=== PATIENT | male | born 1955 | race Caucasian/White ===

== ENCOUNTER → 2017-08-23 | Outpatient (CLI) | payer BC | LOC: BMCIMAGING 15:59 | PROVIDERS: ATTEND Allergy & Immunology Allergy | DX: R91.8 Other nonspecific abnormal finding of lung field (principal) ==

== ENCOUNTER 2017-08-24 09:37 | Inpatient (IN) | payer BC ==
[2017-08-24] MEDS ORDERED: IPRATROPIUM/ALBUTEROL 3 ML DEYVIAL IH ONE (09:59)
[2017-08-24] MEDS ORDERED: methylPREDNISolone SOD SUCC 125 MG/2 ML VIAL IVP ONE (09:59)
[2017-08-24] MEDS ORDERED: ALBUTEROL 3 ML DEYVIAL IH ONE ×2 (09:59→11:16)
[2017-08-24] MEDS ORDERED: NS 1,000 ML IV ONE (09:59)
[2017-08-24] MEDS ORDERED: MAGNESIUM SULF 2 GM/WATER 50 ML IV ONE (09:59)
[2017-08-24 10:19] LABS: ABSOLUTE NRBC COUNT 0.02 10^3/uL (0-0.01); ADD DIFF? YES; ADD MORPH? NO; ADD SCAN? NO; ATYPICAL LYMPHOCYTE FLAG 0 (0-99); FRAGMENT RBC FLAG 0 (0-99); HEMATOCRIT 48.2 % (40.0-51.0); HEMOGLOBIN 17.3 g/dL (13.7-17.5); LEFT SHIFT FLG 40 (0-99); LIPEMIA HEMOLYSIS FLAG 90 (0-99); MEAN CELL HEMOGLOBIN 31.3 pg (27.9-34.1); MEAN CELL HEMOGLOBIN CONCENTR. 35.9 g/dL (32.4-36.7); MEAN CELL VOLUME 87.3 fL (81.5-99.8); MEAN PLATELET VOLUME 9.5 fL (8.7-11.7); NRBC-AUTO% 0.1 % (0.0-0.2); PLATELET CLUMPS FLAG 0 (0-99); PLATELET COUNT 279 10^3/uL (150-400); RED BLOOD CELL COUNT 5.52 10^6/uL (4.40-6.38); RED CELL DISTRIBUTION WIDTH 13.6 % (11.5-15.2)
--- NOTE | 2017-08-24 10:25 | EDPHY ---
H & P Time Seen by Provider: 08/24/17 09:54 HPI/ROS: HPI Shortness of breath, cough, asthma exacerbation. 62-year-old male by private vehicle. He comes from the office of his primary care physician Dr. Francia Martinez. He has a history of asthma. He reports that about 8 days ago he started feeling short of breath developed wheezing and a nonproductive cough. He was seen in the office of his primary care physician. He was started on azithromycin and prednisone. He finished the azithromycin yesterday. He was seen again in the office today. Worsening symptoms including worsening cough again described as dry with associated wheezing and shortness of breath. He denies fever. He reports that he has had pain associated with his cough in the right lower anterior chest area. He reports that his primary care physician also started him on Augmentin today. ROS: Constitutional: No fever, no chills. No weakness. Eyes: No discharge. No changes in vision. ENT: No sore throat. No nasal congestion or rhinorrhea. Respiratory: As above. Cardiac: No chest pain, no palpitations. Gastrointestinal: No abdominal pain, no vomiting, no diarrhea. Genitourinary: No hematuria. No dysuria or increased frequency with urination. Musculoskeletal: No back pain. No neck pain. No myalgias or arthralgias. Skin: No rashes. Neurological: No headache. No focal weakness or altered sensation. Past medical history: Asthma and pneumonia. Bronchoscopy about a year ago with no significant findings according to the patient. Primary care physician is Dr. Francia Martinez. Social history: Nonsmoker. Here by himself. Denies drinking. Physical Exam: General Appearance: Alert, anxious, intermittent dry cough. This patient is responding to questions appropriately and in full sentences. This patient appears well-hydrated and well-nourished. Eyes: Pupils equal and round no pallor or injection. No lid edema, erythema or injection. Respiratory: There are no retractions, tachypnea at 25-30. Intermittent dry hacking cough. He has diffuse wheezing primarily at the bases associated with coarse rhonchi at the bases bilaterally. Cardiovascular: Regular rate and rhythm. Tachycardia. No murmur appreciated. Neurological: Motor sensory function is grossly intact. Cranial nerves are normal. Gait is normal. Skin: Warm and dry, no rashes. Musculoskeletal: Neck is supple and nontender. Extremities are symmetrical. All joints range without pain or impingement. Psychiatric: No agitation. No depression. Database: EKG: EKG time is 10:32 a.m.; EKG shows a narrow complex normal sinus rhythm with a ventricular rate of 103. The NC, QRS, QT intervals are within normal limits. There are no ST-T wave changes indicative of ischemic or injury pattern. No evidence of right heart strain. Interpreted by me. Imaging: Chest x-ray PA and lateral; the cardiac mediastinal silhouette is unremarkable. Right middle lobe infiltrative process. Seen on prior x-rays as well. No other acute cardiopulmonary disease process noted. Interpreted by me. CT angiogram of the chest; significant for extensive mucus plugging indicative of bronchitis with airway disease. Questionable early pneumonia left lower lobe versus atelectasis. No pulmonary embolism. Results were discussed with staff radiologist. Procedures: Emergency department course: IV placed. He was placed on a panel monitor. He was immediately started on albuterol/Atrovent nebulizers 2 to be given [id number] this will be followed by continuous albuterol. He was given an additional 125 mg dose of IV Solu- Medrol and 2 g of IV magnesium. EKG and chest x-ray will be obtained shortly. 10:35 a.m., patient re-evaluated. He is currently on a nebulizer treatment. He states that it is making him feel better. He appears more relaxed at this time. His respiratory rate has slowed to 20. 11:15 a.m., patient re-evaluated. He has been off of his nebulizers for about 20 minutes. He is getting worse. More wheezing, worsening tachypnea. 15 mg continuous albuterol nebulizer was ordered. Plan for admission discussed. 11:30 a.m., spoke with hospitalist, Dr. Ramy Brower. Case discussed in detail. He accepts the patient for admission. Patient will be admitted to the step-down unit. Initially IV Levaquin was ordered given his recent history of azithromycin administration. 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 I discussed antibiotic choices with Dr. Ramy Brower. He will be started on Rocephin in the emergency department. CT scan of his chest has been ordered to further clarify the right middle lobe infiltrative process. 11:45 a.m., patient meets criteria for sepsis based on tachypnea, hypoxia, tachycardia, likely pneumonia. Protocol initiated. Venous lactate will be obtained. When the patient is not on a nebulizer his pulse oximetry's start to dip down and he develops more wheezing and respiratory distress. He was started on BiPAP in the emergency department and responded very well to this treatment. 12:00 p.m., patient is venous lactate 2.2. Possible severe sepsis. He was admitted to the hospitalist service in guarded condition. Differential Diagnosis: The differential diagnosis on this patient includes but is not limited to asthma exacerbation, reactive airway disease, pneumonitis, pneumonia. This represents a partial list of diagnoses considered. These considerations are based on history, physical exam, past history, reassessment and diagnostic testing. Smoking Status: Never smoked Constitutional: Initial Vital Signs Temperature (C) 36.9 C 08/24/17 09:45 Heart Rate 108 H 08/24/17 09:45 Respiratory Rate 16 08/24/17 09:45 Blood Pressure 144/95 H 08/24/17 09:45 O2 Sat (%) 89 L 08/24/17 09:45 O2 Delivery Mode Room Air O2 (L/minute) 5 Allergies/Adverse Reactions: levofloxacin Allergy (Verified 08/24/17 11:22) Home Medications: Medication Instructions Recorded Albuterol [Proventil Inhaler HFA 2 puffs IH Q4-6PRN PRN 08/24/17 (*)] Albuterol [Proventil Neb] 3 ml IH QID PRN 08/24/17 Amoxicillin/Clavulanate Pot 875 mg PO BID 08/24/17 [Augmentin 875 MG TAB (*)] Atorvastatin Calcium [Lipitor 20 20 mg PO DAILY 08/24/17 mg (*)] Cyanocobalamin [Vitamin B12 (*)] 100 mcg PO DAILY 08/24/17 EPINEPHrine [Epipen 0.3 MG] 0.3 mg IM ONCE PRN 08/24/17 FEXOFENADINE HCL 180 mg PO DAILY PRN 08/24/17 Fluticasone Nasal [Flonase Nasal 1 sprays NASAL DAILY PRN 08/24/17 [place] (RX)] Fluticasone/Salmeter 250/50Mcg 1 puffs IH BID 08/24/17 [Advair 250/50 (*)] Fluticasone/Salmeter 500/50Mcg 1 puffs IH BID 08/24/17 [Advair 500/50 (*)] Herbals/Supplements -Info Only 1 ea PO DAILY 08/24/17 Ipratropium/Albuterol [Duoneb (*)] 3 ml IH Q4HRS 08/24/17 Levothyroxine [Synthroid 50 mcg 50 mcg PO DAILY06 08/24/17 (*)] Theophylline Anhydrous 300 mg PO BID 08/24/17 Xolair 150mg 150 mg SQ Q30D 08/24/17 predniSONE 40 mg PO BID 08/24/17 Medical Decision Making - Data Points Laboratory Results: Laboratory Results 08/24/17 10:10 08/24/17 10:10 Medications Given: Acetylcysteine (Mucomyst) 2 ml IH Q6HRS IVANNA Stop: 02/21/18 11:59 Last Admin: 08/25/17 15:12 Dose: Not Given Albuterol/Ipratropium (Duoneb) 3 ml IH Q6HRS IVANNA Stop: 02/20/18 17:59 Last Admin: 08/25/17 11:24 Dose: 3 ml Atorvastatin Calcium (Lipitor) 20 mg PO DAILY IVANNA Stop: 02/21/18 08:59 Last Admin: 08/25/17 09:18 Dose: 20 mg Enoxaparin Sodium (Lovenox) 40 mg SC DAILY IVANNA Stop: 02/21/18 08:59 Last Admin: 08/25/17 09:19 Dose: 40 mg Guaifenesin (Mucinex) 1,200 mg PO BID IVANNA Stop: 02/20/18 20:59 Last Admin: 08/25/17 09:18 Dose: 1,200 mg Levothyroxine Sodium (Synthroid) 50 mcg PO DAILY06 IVANNA Stop: 02/21/18 05:59 Last Admin: 08/25/17 05:13 Dose: 50 mcg Methylprednisolone Sodium Succinate (Solu-Medrol) 60 mg IVP Q6HRS IVANNA Stop: 02/20/18 17:59 Last Admin: 08/25/17 12:28 Dose: 60 mg Fluticasone/Salmeterol (Advair) 1 puffs IH BID IVANNA Stop: 02/21/18 08:59 Last Admin: 08/25/17 09:26 Dose: 1 puffs Theophylline (Tayo-Dur) 300 mg PO BID IVANNA Stop: 02/20/18 20:59 Last Admin: 08/25/17 09:18 Dose: 300 mg Vitamin B Complex (Vitamin B12) 100 mcg PO DAILY IVANNA Stop: 02/21/18 08:59 Last Admin: 08/25/17 09:18 Dose: 100 mcg Discontinued Medications Acetylcysteine (Acetylcysteine 20% Ih/Po) 2 ml IH ONCE ONE Stop: 08/24/17 16:31 Last Admin: 08/24/17 16:33 Dose: 2 ml Albuterol (Proventil Neb) 6 ml IH EDNOW ONE Stop: 08/24/17 10:00 Last Admin: 08/24/17 10:18 Dose: 6 ml Albuterol (Proventil Neb) 12 ml IH EDNOW ONE Stop: 08/24/17 11:17 Last Admin: 08/24/17 14:42 Dose: Not Given Albuterol/Ipratropium (Duoneb) 6 ml IH EDNOW ONE Stop: 08/24/17 10:00 Last Admin: 08/24/17 10:16 Dose: 6 ml Sodium Chloride (Ns) 1,000 mls @ 0 mls/hr IV ONCE ONE; Wide Open PRN Reason: Protocol Stop: 08/24/17 10:00 Last Admin: 08/24/17 10:14 Dose: 1,000 mls Magnesium Sulfate (Magnesium Sulf 2 Gm (Premix)) 50 mls @ 50 mls/hr IV EDNOW ONE Stop: 08/24/17 10:58 Last Admin: 08/24/17 10:17 Dose: 50 mls Levofloxacin/Dextrose (Levaquin 750 Mg (Premix)) 150 mls @ 100 mls/hr IV EDNOW ONE PRN Reason: Protocol Stop: 08/24/17 12:32 Last Admin: 08/24/17 11:35 Dose: Not Given Ceftriaxone Sodium/Dextrose (Rocephin 1 Gm (Premix)) 50 mls @ 100 mls/hr IV EDNOW ONE PRN Reason: Protocol Stop: 08/24/17 12:02 Last Admin: 08/24/17 12:16 Dose: 50 mls Sodium Chloride (Ns) 2,400 mls @ 4,800 mls/hr 30 ml/kg infuse over 30 min ( 2400 ml) IV EDNOW ONE PRN Reason: Protocol Stop: 08/24/17 12:26 Last Admin: 08/24/17 12:18 Dose: 1,400 mls Methylprednisolone Sodium Succinate (Solu-Medrol) 125 mg IVP EDNOW ONE Stop: 08/24/17 10:00 Last Admin: 08/24/17 10:21 Dose: 125 mg Methylprednisolone Sodium Succinate (Solu-Medrol) 125 mg IVP Q6HRS IVANNA Stop: 02/20/18 17:59 Last Admin: 08/25/17 05:13 Dose: 125 mg Fluticasone/Salmeterol (Advair) 1 puffs IH BID IVANNA Stop: 02/20/18 20:59 Last Admin: 08/25/17 11:06 Dose: Not Given Departure - Departure Disposition: [facility] Acute Clinical Impression: Asthma exacerbation, Hypoxia, Bronchitis, Possible pneumonia, Possible sepsis
[2017-08-24 10:30] LABS: ANION GAP 12 mEq/L (8-16); CALCIUM 9.8 mg/dL (8.5-10.4); CARBON DIOXIDE 23 mEq/l (22-31); CHLORIDE 102 mEq/L (97-110); CREATININE 1.3 mg/dL (0.7-1.3); GLOMERULAR FILTRATION RATE 56; GLUCOSE 120 mg/dL (70-100); POTASSIUM 3.9 mEq/L (3.5-5.2); SODIUM 137 mEq/L (134-144)
--- NOTE | 2017-08-24 10:33 | CPEKG ---
Heart Rate: 103 RR Interval: 583 P-R Interval: 128 QRSD Interval: 82 QT Interval: 348 QTC Interval: 456 P Posen: 75 QRS Posen: 15 T Wave Posen: 18 EKG Severity - BORDERLINE ECG - EKG Impression: SINUS TACHYCARDIA EKG Impression: PROBABLE LEFT ATRIAL ABNORMALITY Electronically Signed By: Talha Gonzalez 24-Aug-2017 15:24:41
[2017-08-24 10:41] LABS: TROPONIN I < 0.012 ng/mL (0.000-0.034)
[2017-08-24 10:56] LABS: PLATELET ESTIMATE ADEQUATE (ADEQ)
[2017-08-24] MEDS ORDERED: IOPAMIDOL (ISOVUE 370) 100 ML BTL IV ONE (11:28)
[2017-08-24] MEDS ORDERED: NS 2,400 ML IV ONE (11:57)
[2017-08-24 12:16] LABS: INR 0.96 (0.83-1.16); PROTIME(PATIENT) 12.7 SEC (12.0-15.0)
[2017-08-24 12:31] LABS: BILIRUBIN,TOTAL 1.1 mg/dL (0.1-1.4)
[2017-08-24] MEDS ORDERED: ONDANSETRON 4 MG/2 ML VIAL IVP PRN (12:58)
[2017-08-24] MEDS ORDERED: ONDANSETRON DISINTEGRATING 4 MG TAB PO PRN (12:58)
[2017-08-24] MEDS ORDERED: ACETAMINOPHEN 325 MG TAB PO PRN (12:58)
[2017-08-24] MEDS ORDERED: ALBUTEROL 3 ML DEYVIAL IH PRN (13:04)
[2017-08-24] MEDS ORDERED: FLUTICASONE NASAL 120 SPRAYS/16 GM MDI EACHNARE PRN (13:05)
[2017-08-24] MEDS ORDERED: NS 1,000 ML IV SCH (14:30)
--- NOTE | 2017-08-24 15:26 | GHP ---
[f rep st] HISTORY AND PHYSICAL DATE OF ADMISSION: 08/24/2017 CHIEF COMPLAINT: Shortness of breath. HISTORY OF PRESENT ILLNESS: A 62-year-old male with history of asthma followed by Dr. Martinez who pr esents with shortness of breath. This started about 6-days ago. He was prescribed prednisone 40 mg p.o. twice daily as well as azithromycin. He additionally received an intramuscular Solu-Medrol shot in her office. He feels as though he did not really improve after starting these medications and in fact got worse. He went to see her again today and yesterday. She has given him additional Solu-Me drol in her clinic. He presents to the emergency room sent by her today with significant dyspnea. Stewart villarreal tells me that he is coughing a lot, but his coughs are not very productive. He had a bronchoscopy about 3 or 4 years ago because of some chronic changes in his lung. He was told there was nothing si gnificant identified on bronchoscopy. He has not had any fevers. A few days ago, he felt warm overn ight, but he has not had any true fevers since. He has not had any myalgias. PAST MEDICAL/SURGICAL HISTORY: 1. Allergic asthma. 2. Hypertension. 3. Hyperlipidemia. MEDICATIONS: Please see medication reconciliation. ALLERGIES: Levofloxacin. SOCIAL HISTORY: Does not smoke. He drinks occasionally. FAMILY HISTORY: Father had lung problems when he was older. REVIEW OF SYSTEMS: A 10-point Review of Systems is conducted and is negative except per HPI. PHYSICAL EXAM: VITAL SIGNS: Blood pressure 171/92, heart rate 111, respiration rate about 30, satur ating at 98% on BiPAP, temperature 37.4. GENERAL: The patient is a pleasant man who looks in signif icant respiratory distress. HEENT: Shows him to be normocephalic, atraumatic. CARDIOVASCULAR: Deirdre ws him to be tachycardic. There are no murmurs, rubs, or gallops. RESPIRATORY EXAM: Shows him to b e in significant respiratory distress. He has contractions and prolonged expiratory phase. LUNGS: Diffusely rhonchorous and wheezy. ABDOMINAL EXAM: Soft, nontender, nondistended. SKIN: No rash. EXAM: No Lux. NEUROLOGIC EXAM: Shows him to be alert and oriented x3. He is moving all extre mities. PSYCHIATRIC: Exam shows normal mood and affect. LABS: White count is 20.2, INR 0.9, lactate is 2.9, initial troponin is negative. Procalcitonin is 0.07. Influenza is pending. DATA: 1. Chest, thorax, CT angiogram shows no PE, does show extensive mucus plugging and airways disease. 2. ECG, which I personally viewed and interpreted, shows sinus tachycardia. No T-wave inversions. No ST changes. 3. I discussed this with Dr. Grimm. IMPRESSION AND PLAN: A 62-year-old man with asthma exacerbation: 1. Acute hypoxic respiratory failure: This is likely due to asthma as well as mucus plugging. I am placing him on BiPAP right now as he is quite dyspneic. We will see how he responds to this. Pulmo nology has been consulted and will see him as well. We will check a STAT ABG. If he does not respon d to BiPAP, will need to be intubated. 2. Asthma exacerbation: No clear predisposing factor. Procalcitonin is negative. For now, we will just treat with steroids as he has already received a course of antibiotics as an outpatient, which did not help. He received magnesium in the emergency department as well. I discussed the considerat ion of bronchoscopy with Dr. Grimm given his extensive mucus plugging, he will consider this, but wou ld likely need to be intubated post bronchoscopy. I do not know that he can tolerate any significant pulmonary hygiene on BiPAP at this time. 3. Leukocytosis: This is likely due to his outpatient steroids. Again, with a negative procalciton in, I do not think that this indicates infection. 4. Hypertension: He is hypertensive now likely given his distress. Will continue his home medicati ons. 5. Code status: He would like to be full code. 6. Venous thromboembolism risk is moderate to high. He will get Lovenox prophylaxis dosing. /[id number]/MODL
[2017-08-24 15:28] LABS: BASE EXCESS -4.6 mEq/L (-2.5-2.5); BICARBONATE 17 mEq/L (22-26); BIPAP YES; EXP PRESSURE 6; INSP PRESSURE 12; MEASURED OXYGEN SATURATION 92 % (92-95); PCO2 25 mmHg (34-38); PO2 62 mmHg (65-75); TCO2 18 mEq/L (23-27)
[2017-08-24 15:29] LABS: O2 CONCENTRATIION 55 % (0-100); P/F RATIO 113 RATIO
--- NOTE | 2017-08-24 15:55 | PDMN ---
Medical Necessity Medical necessity: M61 asthma hypoxemia 89% RA - 95-98% Bipap, tachycardic ( 108-121) RR ( 22-26) sig mucus plugging seen on CT, SOB X 6 days with outpt solumedrol , steroids, with no improvement. further monitoring req. RT tx,
[2017-08-24] MEDS ORDERED: IPRATROPIUM/ALBUTEROL 3 ML DEYVIAL ONE (15:56)
[2017-08-24] MEDS: IPRATROPIUM/ALBUTEROL 3 ML DEYVIAL IH SCH ×2 (16:00→22:00)
[2017-08-24] MEDS ORDERED: ACETYLCYSTEINE 20% IH/PO 4 ML VIAL IH ONE (16:30)
[2017-08-24] MEDS: methylPREDNISolone SOD SUCC 125 MG/2 ML VIAL IVP SCH (18:16)
[2017-08-24] MEDS: THEOPHYLLINE ER/SR 300 MG TAB (THEO-DUR) PO SCH (20:57)
[2017-08-24] MEDS: guaiFENesin 600 MG TAB.ER PO SCH (20:58)
[2017-08-24] MEDS: FLUTICASONE/SALMETER 500/50MCG DISKUS IH SCH (22:00)
--- NOTE | 2017-08-24 22:14 | GCON ---
[f rep st] CONSULTATION PULMONARY CRITICAL CARE CONSULTATION. REASON FOR CONSULTATION: Asthma exacerbation. HISTORY OF PRESENT ILLNESS: The patient is a very pleasant 62-year-old with a lifelong history of as thma. Over the last week he has had increased shortness of breath. He has not been able to cough up any mucus. He has had similar exacerbations in the past and has required bronchoscopy associated wi th one of his admissions a couple of years ago. He was seen as an outpatient by a Dr. Martinez. He w as given steroids, including prednisone 40 mg b.i.d., along with azithromycin. He completed the latt er and was started on Augmentin, which he has gotten a couple of doses of. He also got some IM Solu- Medrol from her office. He denies any fevers or chills. Again, he has been unable to cough up any m ucus, which he feels is somewhat unusual for him. He is chronically maintained regarding his asthma on Xolair, DuoNeb as needed, inhaled albuterol, Advair and theophylline. He also has an EpiPen at [facility]. Following admission, he has been treated with scheduled DuoNebs and p.r.n. albuterol and Solu-Medrol at 125 mg q.6 hours. Theophylline is being continued at 300 mg twice a day. No theophylline level h as been obtained. He was negative for influenza on admission. PAST MEDICAL HISTORY: Other than his asthma, there is a history of allergies, hypothyroidism; on rep lacement, and hyperlipidemia. DRUG ALLERGIES: Levaquin. SOCIAL HISTORY: The patient is , with a very supportive and family. He is a nonsmoker. Significant alcohol is negative. FAMILY HISTORY: Negative for asthma. REVIEW OF SYSTEMS: A 10-point review of systems is negative. There is no history of heart disease, significant gastroesophageal reflux, aspiration, etc. PHYSICAL EXAMINATION: GENERAL: Reveals a pleasant gentleman with BiPAP in place. He appears quite comfortable on this and is able to talk with the mask in place. VITAL SIGNS: Blood pressure is 140/ 80, heart rate 100 with sinus rhythm on the monitor. Respiratory rate is 20. Saturations are 98% on BiPAP. HEENT: Unremarkable for lymphadenopathy or thyromegaly. NECK: There is no jugular venous distention. LUNGS: With BiPAP in place, breath sounds are good. There is minimal, if any, wheezing and only a few coarse central airway sounds with rhonchi consistent with mucus in the airways. When the BiPAP is removed and he is on a simple mask, there is increased inspiratory and expiratory wheez ing and rhonchi. There are no tight expiratory wheezes and he is not using accessory muscles. HEART : Regular rate and rhythm to tachycardic. There are no significant murmurs, no gallops. ABDOMEN: Soft, nontender, bowel sounds present. EXTREMITIES: Unremarkable for edema, cords, or tenderness. NEUROLOGIC: Within normal limits. DATABASE: CT angiogram of the chest was done on admission. There appear to be some chronic changes with atelectasis and possibly some mild bronchiectasis and mucous plugging in the anterior medial seg ment of the right middle lobe. There is also some consolidative changes with mucous plugging and sajan e atelectasis in the left lower lobe centrally. There is no evidence of definite infiltrate or conso lidation. LABORATORY DATA: White blood cell count on admission is 20,000, hematocrit 48, platelets normal. PT and PTT are normal. Arterial blood gas on admission showed a pH of 7.45, pCO2 25, and PO2 62 on hig h-flow oxygen and BiPAP. Basic metabolic panel was within normal limits. Troponin and BNP were nega tive. Procalcitonin was negative. Serology is negative for flu. ASSESSMENT: 1. Asthma exacerbation. This is associated with hypoxemia, wheezing, and pulmonary congestion. The re is evidence for mucous plugging. On the current therapies, including intermittent BiPAP, higher d ose steroids and bronchodilator treatments, he is significantly more comfortable. Wheezing is improv ed, almost resolved when he is on BiPAP, but presently he is off. He has been recently treated for b ronchopneumonia and further antibiotics would not appear to be indicated at this time. Mucolytics wi ll probably be a benefit. Bronchoscopy can be considered later in his hospital course. However, in the acute setting, bronchoscopy can worsen an asthma exacerbation. 2. History of other medical problems as outlined above. PLAN AND RECOMMENDATIONS: The patient will be kept in the intensive care unit. BiPAP can be alterna cody with a nasal cannula or oxy mask. Intravenous steroids will be continued at the current dosages and bronchodilator therapies will be continued. Mucolytics including Mucomyst and Mucinex will be ad ded to his regimen. Chest x-ray will be followed. Bronchoscopy can be considered over the next alyssia ral days based on his progress Further plans and recommendations will be made based on his progress over the next 12-24 hours. /[id number]/MODL
[2017-08-25] MEDS: methylPREDNISolone SOD SUCC 125 MG/2 ML VIAL IVP SCH ×4 (00:24→17:40)
[2017-08-25] MEDS: LEVOTHYROXINE 50 MCG TAB PO SCH (05:13)
[2017-08-25] MEDS: IPRATROPIUM/ALBUTEROL 3 ML DEYVIAL IH SCH ×4 (05:24→23:48)
[2017-08-25 06:19] LABS: ADD DIFF? YES; ADD MORPH? NO; ADD SCAN? NO; ATYPICAL LYMPHOCYTE FLAG 0 (0-99); FRAGMENT RBC FLAG 0 (0-99); HEMATOCRIT 44.9 % (40.0-51.0); HEMOGLOBIN 15.6 g/dL (13.7-17.5); LEFT SHIFT FLG 40 (0-99); LIPEMIA HEMOLYSIS FLAG 90 (0-99); MEAN CELL HEMOGLOBIN 30.5 pg (27.9-34.1); MEAN CELL HEMOGLOBIN CONCENTR. 34.7 g/dL (32.4-36.7); MEAN CELL VOLUME 87.9 fL (81.5-99.8); MEAN PLATELET VOLUME 9.8 fL (8.7-11.7); PLATELET CLUMPS FLAG 0 (0-99); PLATELET COUNT 251 10^3/uL (150-400); RED BLOOD CELL COUNT 5.11 10^6/uL (4.40-6.38); RED CELL DISTRIBUTION WIDTH 13.9 % (11.5-15.2)
[2017-08-25 06:35] LABS: ALANINE AMINOTRANSFERASE 38 IU/L (21-72); ALBUMIN 3.5 g/dL (3.5-5.0); ALKALINE PHOSPHATASE 60 IU/L (38-126); ANION GAP 13 mEq/L (8-16); ASPARTATE AMINOTRANSFERASE 23 IU/L (17-59); CALCIUM 8.9 mg/dL (8.5-10.4); CARBON DIOXIDE 18 mEq/l (22-31); CHLORIDE 105 mEq/L (97-110); CREATININE 1.1 mg/dL (0.7-1.3); GLOMERULAR FILTRATION RATE > 60; GLUCOSE 136 mg/dL (70-100); POTASSIUM 4.1 mEq/L (3.5-5.2); SODIUM 136 mEq/L (134-144); TOTAL PROTEIN 5.6 g/dL (6.3-8.2)
[2017-08-25 07:20] LABS: PLATELET ESTIMATE ADEQUATE (ADEQ)
--- NOTE | 2017-08-25 07:53 | HOSPPROG ---
Hospitalist Progress Note Assessment/Plan: # acute hypoxic resp failure d/t asthma exacerbation - overall improved today, still on 4L NC # acute asthma exacerbation - unclear precipitant - cont steroids (reduced dose), nebs; hold abx # allergic asthma - cont zyrtec, theophylline, flonase # mucous plugging - pulm hygeine, s/p mucomyst, mucinex # hypothyroid - synthroid # ppx lovenox # dispo - med surg today likely Subjective: breathing feels better today Objective: Vital Signs Temp Pulse Resp BP Pulse Ox 36.7 C 102 H 16 144/76 H 94 08/25/17 04:00 08/25/17 06:00 08/25/17 06:00 08/25/17 06:00 08/25/17 06:00 Laboratory Results 08/25/17 05:38 08/25/17 05:38 08/24/17 08/25/17 08/26/17 05:59 05:59 05:59 Intake Total 500 Balance 500 PT 12.7 SEC (12.0-15.0) 08/24/17 10:10 INR 0.96 (0.83-1.16) 08/24/17 10:10 tele personally reviewed CXR personally reviewed - Physical Exam Constitutional: other (mild SOB) Cardiovascular: regular rate and rhythym, no murmur, rub, or gallop Respiratory: other (mild resp distress; mild retractions; diffuse rhonchi and wheezes - better today) Gastrointestinal: normoactive bowel sounds, soft, non-tender abdomen, no palpable masses ICD10 Worksheet Patient Problems: Problems Problem Status Onset Asthma exacerbation Acute Hypoxia Acute Bronchitis Acute Sepsis Acute
[2017-08-25] MEDS ORDERED: CETIRIZINE 10 MG TAB PO PRN (09:00)
--- NOTE | 2017-08-25 09:11 | PDINTPN ---
F[facility] Operator Progress Note Assessment/Plan: Assessment/Plan: Asthma exacerbation. Secondary to a recent upper respiratory infection. Already treated with antibiotics and without obvious infectious symptoms. His exacerbation is associated with mucus plugging. He has significantly improved compared with admission. No significant wheezing today, did not need BiPAP over night. Therapies are appropriate. Agree with reduction of Solu-Medrol. Will continue other her medications. For some reason acetylcysteine dropped off his Mar last night. Will restart. Chest x-ray today shows increased bibasilar atelectasis despite significant clinical improvement. May need bronchoscopy. Will make this decision tomorrow based on repeat x-ray and how he is doing clinically. 30 minutes critical care time spent directly with the patient. Discussed issues with the patient and his , nursing, the ICU multi disciplinary team. Subjective: Feels significantly better. Did not need BiPAP over night. Some cough but no mucus. Still feels that he cannot get a full breath. Objective: Vital Signs Temp Pulse Resp BP Pulse Ox 36.9 C 95 16 138/83 H 92 08/25/17 08:00 08/25/17 08:00 08/25/17 08:00 08/25/17 08:00 08/25/17 08:00 Laboratory Results 08/25/17 05:38 08/25/17 05:38 08/24/17 08/25/17 08/26/17 05:59 05:59 05:59 Intake Total 500 Balance 500 PT 12.7 SEC (12.0-15.0) 08/24/17 10:10 INR 0.96 (0.83-1.16) 08/24/17 10:10 Laboratory Tests 08/25/17 05:38 Calcium 8.9 Total Bilirubin 1.0 AST 23 ALT 38 Albumin 3.5 CXR: Increased bibasilar atelectatic changes Physical Exam - Physical Exam General Appearance: alert, no apparent distress EENT: other (Nasal cannula at 4 L) Neck: normal inspection Respiratory: lungs clear (Anteriorly), decreased breath sounds (At bases), rhonchi (Few rhonchi with and exhalation), wheezing (Minimal, not tight), prolonged expiration, No respiratory distress, No accessory muscle use, No rales (No significant rales or consolidative changes) Cardiac/Chest: regular rate, rhythm Abdomen: normal bowel sounds, non-tender, soft Skin: normal color, warm/dry Extremities: No pedal edema Neuro/Psych: no motor/sensory deficits, cognition abnormalities ICD10 Worksheet Patient Problems: Problems Problem Status Onset Asthma exacerbation Acute Hypoxia Acute Bronchitis Acute Sepsis Acute
[2017-08-25] MEDS: THEOPHYLLINE ER/SR 300 MG TAB (THEO-DUR) PO SCH ×2 (09:18→21:45)
[2017-08-25] MEDS: CYANO/VITAMIN B12 100 MCG TAB PO SCH (09:18)
[2017-08-25] MEDS: guaiFENesin 600 MG TAB.ER PO SCH ×2 (09:18→21:45)
[2017-08-25] MEDS: ATORVASTATIN CALCIUM 20 MG TAB PO SCH (09:18)
[2017-08-25] MEDS: ENOXAPARIN 40 MG/0.4 ML SYR SC SCH (09:19)
[2017-08-25] MEDS: FLUTICASONE/SALMETER 500/50MCG DISKUS IH SCH ×3 (09:26→21:45)
[2017-08-25] MEDS ORDERED: ACETYLCYSTEINE 20% IH/PO 30 ML VIAL IH SCH (12:00)
[2017-08-25] MEDS: ACETYLCYSTEINE 20% IH/PO 4 ML VIAL IH SCH ×3 (17:59→23:46)
[2017-08-26] MEDS: methylPREDNISolone SOD SUCC 125 MG/2 ML VIAL IVP SCH ×5 (00:11→23:58)
[2017-08-26 05:40] LABS: ADD DIFF? YES; ADD MORPH? NO; ADD SCAN? NO; ATYPICAL LYMPHOCYTE FLAG 0 (0-99); FRAGMENT RBC FLAG 0 (0-99); HEMATOCRIT 44.7 % (40.0-51.0); HEMOGLOBIN 15.6 g/dL (13.7-17.5); LEFT SHIFT FLG 40 (0-99); LIPEMIA HEMOLYSIS FLAG 90 (0-99); MEAN CELL HEMOGLOBIN 30.8 pg (27.9-34.1); MEAN CELL HEMOGLOBIN CONCENTR. 34.9 g/dL (32.4-36.7); MEAN CELL VOLUME 88.2 fL (81.5-99.8); MEAN PLATELET VOLUME 9.6 fL (8.7-11.7); PLATELET CLUMPS FLAG 0 (0-99); PLATELET COUNT 224 10^3/uL (150-400); RED BLOOD CELL COUNT 5.07 10^6/uL (4.40-6.38); RED CELL DISTRIBUTION WIDTH 13.3 % (11.5-15.2)
[2017-08-26] MEDS: ACETYLCYSTEINE 20% IH/PO 4 ML VIAL IH SCH ×4 (05:47→22:20)
[2017-08-26] MEDS: IPRATROPIUM/ALBUTEROL 3 ML DEYVIAL IH SCH ×4 (05:47→22:19)
[2017-08-26 05:50] LABS: ANION GAP 12 mEq/L (8-16); CALCIUM 8.7 mg/dL (8.5-10.4); CARBON DIOXIDE 21 mEq/l (22-31); CHLORIDE 105 mEq/L (97-110); CREATININE 1.1 mg/dL (0.7-1.3); GLOMERULAR FILTRATION RATE > 60; GLUCOSE 135 mg/dL (70-100); POTASSIUM 4.3 mEq/L (3.5-5.2); SODIUM 138 mEq/L (134-144)
[2017-08-26] MEDS: LEVOTHYROXINE 50 MCG TAB PO SCH (06:02)
[2017-08-26 06:21] LABS: PLATELET ESTIMATE ADEQUATE (ADEQ)
[2017-08-26] MEDS: guaiFENesin 600 MG TAB.ER PO SCH ×2 (08:32→21:58)
[2017-08-26] MEDS: ATORVASTATIN CALCIUM 20 MG TAB PO SCH (08:32)
[2017-08-26] MEDS: CYANO/VITAMIN B12 100 MCG TAB PO SCH (08:32)
[2017-08-26] MEDS: THEOPHYLLINE ER/SR 300 MG TAB (THEO-DUR) PO SCH ×2 (08:32→21:58)
[2017-08-26] MEDS: FLUTICASONE/SALMETER 500/50MCG DISKUS IH SCH ×2 (10:35→22:01)
--- NOTE | 2017-08-26 12:37 | HOSPPROG ---
Hospitalist Progress Note Assessment/Plan: # acute hypoxic resp failure d/t asthma exacerbation - worse last night; now on oxymask - bronch today # acute asthma exacerbation - unclear precipitant - cont steroids (reduced dose), nebs; hold abx # allergic asthma - cont zyrtec, theophylline, flonase # mucous plugging - pulm hygeine, s/p mucomyst, mucinex # hypothyroid - synthroid # ppx lovenox Subjective: episode of coughing last night, then desats; still feels very weak and dyspneic Objective: Vital Signs Temp Pulse Resp BP Pulse Ox 36.8 C 87 18 139/81 H 92 08/26/17 11:25 08/26/17 11:25 08/26/17 11:25 08/26/17 11:25 08/26/17 11:25 Laboratory Results 08/26/17 05:17 08/26/17 05:17 08/25/17 08/26/17 08/27/17 05:59 05:59 05:59 Intake Total 500 150 Balance 500 150 PT 12.7 SEC (12.0-15.0) 08/24/17 10:10 INR 0.96 (0.83-1.16) 08/24/17 10:10 high risk - high O2 needs - Physical Exam Constitutional: not in pain Cardiovascular: regular rate and rhythym, no murmur, rub, or gallop Respiratory: expiratory wheeze (mild), bronchial breath sounds (L base), other ( mild resp distress), No clear to auscultation, No reduced air movement Gastrointestinal: normoactive bowel sounds, soft, non-tender abdomen, no palpable masses ICD10 Worksheet Patient Problems: Problems Problem Status Onset Asthma exacerbation Acute Hypoxia Acute Bronchitis Acute
[2017-08-26] MEDS ORDERED: LIDOCAINE 2% JELLY 5 ML TUBE ONE (12:49)
[2017-08-26] MEDS ORDERED: LIDOCAINE 1% 300 MG/30 ML SDV ONE ×2 (12:49→13:46)
[2017-08-26] MEDS ORDERED: MIDAZOLAM 2 MG/2 ML VIAL ONE (13:13)
[2017-08-26] MEDS ORDERED: fentaNYL 100 MCG/2 ML INJ ONE (13:13)
--- NOTE | 2017-08-26 13:17 | ASMTCMCOM ---
CM Note CM Note Notes: Spoke w/RN, anticipate pt will dc home w/support of when medically stable. CM available for any changes. Date Signed: 08/26/2017 01:16 PM Electronically Signed By:Dian Dacosta RN
--- NOTE | 2017-08-27 01:05 | GPN ---
[f rep st] PROCEDURE NOTE DATE OF PROCEDURE: 08/26/2017 PROCEDURE: Therapeutic bronchoscopy. INDICATION: Mucus plugging with increasing hypoxemia in a patient with asthma. DESCRIPTION OF PROCEDURE: The procedure was performed in the endoscopy unit. Informed consent was o btained from the patient. Appropriate time-out was performed. N95 masks were worn. Topical anesthe ann included a small amount of Hurricaine spray to the posterior oropharynx followed by 3 or 4 cc of 1% lidocaine. Approximately 30 mL of 1% lidocaine was used to anesthetize the lower tracheobronchial tree. Intravenous sedation included 6 mg of Versed and 150 mcg of fentanyl. The fiberoptic bronchoscope was passed via a bite block orally into the larynx. The vocal cords were identified, appeared normal, were cannulated, and the bronchoscope was advanced through them. The b ronchoscope was then advanced into the distal trachea and into the lower tracheobronchial tree. All areas were observed to at least the segmental/subsegmental levels. Anatomy was normal bilaterally. There were thick tenacious secretions found bilaterally, most prominent in the lower lobes. These we re removed with suction and lavage. On a number of occasions, the bronchoscope had to be removed wit h the secretions attached or within it so they could be forcibly ejected. Secretions were quite larg e in amount. At the end of the procedure no further significant large secretions or mucus plugs were found. Some of the mucus plugs appeared to be casts of bronchial segments and some of these were qu ite dark in appearance. The patient tolerated the procedure well. Oxygen saturations on supplemental oxygen vital signs kathia ined normal throughout the procedure. A sample was obtained for culture and sent to the lab for aero bic bacteria and fungal cultures. ASSESSMENT: Marked mucous plugging was present. Secretions, plugs, and tenacious material were judy son with suction and lavage. Cultures were sent. /[id number]/MODL
[2017-08-27] MEDS: methylPREDNISolone SOD SUCC 125 MG/2 ML VIAL IVP SCH ×2 (05:47→12:40)
[2017-08-27] MEDS: LEVOTHYROXINE 50 MCG TAB PO SCH (05:47)
[2017-08-27] MEDS: IPRATROPIUM/ALBUTEROL 3 ML DEYVIAL IH SCH ×2 (05:53→11:36)
[2017-08-27] MEDS: ACETYLCYSTEINE 20% IH/PO 4 ML VIAL IH SCH ×2 (05:53→11:35)
[2017-08-27] MEDS: ENOXAPARIN 40 MG/0.4 ML SYR SC SCH (10:14)
[2017-08-27] MEDS: THEOPHYLLINE ER/SR 300 MG TAB (THEO-DUR) PO SCH (10:15)
[2017-08-27] MEDS: CYANO/VITAMIN B12 100 MCG TAB PO SCH (10:15)
[2017-08-27] MEDS: guaiFENesin 600 MG TAB.ER PO SCH (10:15)
[2017-08-27] MEDS: ATORVASTATIN CALCIUM 20 MG TAB PO SCH (10:15)
[2017-08-27 11:15] VITALS: BP 143/87; RESP 18; TEMP 98.2
[2017-08-27] MEDS: FLUTICASONE/SALMETER 500/50MCG DISKUS IH SCH (11:36)
[2017-08-27 11:44] VITALS: PULSE 82; O2SAT 93
--- NOTE | 2017-08-27 12:04 | HOSPPROG ---
Hospitalist Progress Note Assessment/Plan: 62 yo m w asthma a/w acute hypoxemic resp failure acute hypoxic resp failure d/t asthma exacerbation - worse last night; now on oxymask - bronch w removal of mucus plugs resulting in significant improvement, reduction in 02 requirement acute asthma exacerbation - unclear precipitant - cont steroids (reduced dose), nebs; hold abx will dc back on home regimen allergic asthma - cont zyrtec, theophylline, flonase mucous plugging - pulm hygeine, s/p mucomyst, mucinex pickle hypothyroid - synthroid ppx lovenox dispo: home today > 30 minutes on dc Subjective: remarkable improvement after bronch. on RA! feels breathing is at baseline Objective: Vital Signs Temp Pulse Resp BP Pulse Ox 36.8 C 82 18 143/87 H 93 08/27/17 11:14 08/27/17 11:39 08/27/17 11:39 08/27/17 11:14 08/27/17 11:39 Microbiology 08/26/17 13:45 Gram Stain - Final Lung Bilateral - Bronchial Washings Laboratory Results 08/26/17 05:17 08/26/17 05:17 08/26/17 08/27/17 08/28/17 05:59 05:59 05:59 Intake Total 150 1000 Balance 150 1000 PT 12.7 SEC (12.0-15.0) 08/24/17 10:10 INR 0.96 (0.83-1.16) 08/24/17 10:10 - Physical Exam Constitutional: no apparent distress, appears nourished Eyes: PERRL, anicteric sclera Ears, Nose, Mouth, Throat: moist mucous membranes, hearing normal Cardiovascular: regular rate and rhythym, no murmur, rub, or gallop, other ( borderline tachycardia after nebs) Respiratory: no respiratory distress, no rales or rhonchi, other (good air movement, no wheeze) Gastrointestinal: normoactive bowel sounds, soft, non-tender abdomen Genitourinary: no bladder fullness, No garcia in urethra Skin: warm, normal color Musculoskeletal: full muscle strength, no muscle tenderness Neurologic: AAOx3 ICD10 Worksheet Patient Problems: Problems Problem Status Onset Asthma exacerbation Acute Bronchitis Acute Hypoxia Acute
--- NOTE | 2017-08-27 13:26 | SOAPPROG ---
SOAP Progress Note Assessment/Plan: Assessment/Plan: Asthma exacerbation. Secondary to a recent upper respiratory infection. Already treated with antibiotics and without obvious infectious symptoms on admission. His exacerbation was associated with mucus plugging. Bronchoscopy was required yesterday. He had incredibly thick mucus plugs removed with difficulty by repeated suctioning that were obstructing lower lobe bronchi. These were dark, extensive comma and consistent with bronchial casts. Following the removal he improved significantly. The above presentation is somewhat unusual. He has had thick mucus plugging previously and required bronchoscopy as an outpatient several years ago. Allergic bronchopulmonary aspergillosis needs to be considered. Sputum cultures are pending for fungus. I will obtain serum precipitants for Aspergillus and a repeat IgE level, the latter elevated in the past, prior to discharge. He is to go home today on bronchodilator therapy and a prednisone taper. I will see him back in the office in 5-6 days. Discussed issues with the patient and his , nursing, hospitalist. Subjective: Feels much better. 8.5 on a scale a 10. Little wheezing. Decreased cough. No mucus. Objective: Vital Signs Temp Pulse Resp BP Pulse Ox 36.8 C 82 18 143/87 H 93 08/27/17 11:14 08/27/17 11:39 08/27/17 11:39 08/27/17 11:14 08/27/17 11:39 Microbiology 08/26/17 13:45 Gram Stain - Final Lung Bilateral - Bronchial Washings Laboratory Results 08/26/17 05:17 08/26/17 05:17 08/26/17 08/27/17 08/28/17 05:59 05:59 05:59 Intake Total 150 1000 Balance 150 1000 PT 12.7 SEC (12.0-15.0) 08/24/17 10:10 INR 0.96 (0.83-1.16) 08/24/17 10:10 Sputum culture from bronch negative so far. Fungal pending later. Physical Exam - Physical Exam General Appearance: alert, no apparent distress EENT: other (Off oxygen) Neck: normal inspection Respiratory: normal breath sounds (And excursions), rhonchi (Few rhonchi and associated wheezes. Much better. Much improved air movement.) Cardiac/Chest: regular rate, rhythm Abdomen: normal bowel sounds, non-tender, soft Skin: normal color, warm/dry Extremities: No pedal edema Neuro/Psych: no motor/sensory deficits, No cognition abnormalities ICD10 Worksheet Patient Problems: Problems Problem Status Onset Asthma exacerbation Acute Hypoxia Acute Bronchitis Acute
--- NOTE | 2017-08-27 13:53 | ASDISCHSUM ---
Discharge Information Plan Status:Home with No Needs Medically Cleared to Leave:08/27/2017 Discharge Date:08/27/2017 01:25 PM CM D/C Disposition:Home, Routine, Self-Care ADT D/C Disposition:Home, Routine, Self-Care Projected Discharge Date:08/27/2017 01:25 PM Transportation at D/C: Discharge Delay Reason: Follow-Up Date:08/27/2017 01:25 PM Discharge Slot:2 - 12:01 pm - 18:00 pm Final Diagnosis:acute hypoxic resp failure d/t asthma exacerbation, acute asthma exacerbation, aller gic asthma Placement Information Patient Contact Information Contact Name:JACQUES Relationship: Address:[address] City:[place] Alternate Phone: State/Zip Code:[place] [address] Email: Financial Information Financial Class:HMO and PPO Plans Primary Plan Desc: OUT OF STATE PPO Primary Plan Number:[id number] Secondary Plan Desc: Secondary Plan Number: Assessment Information [facility] CM Progress Note CM Note CM Note Notes: Spoke w/RN, anticipate pt will dc home w/support of when medically stable. CM available for any changes. Date Signed: 08/26/2017 01:16 PM Electronically Signed By:Dian Dacosta RN [facility] CM Progress Note CM Note CM Note Notes: Reviewed chart re: d/c poc, pt's progress. Per MD notes, pt to discharge home independently today, w/ family support and no identified needs. No IM signed, not applicable. Pt to f/u as directed. CM avail for any further issues or concerns. Date Signed: 08/27/2017 01:52 PM Electronically Signed By:Lakeshia Blunt RN Intervention Information
--- NOTE | 2017-08-27 19:08 | GDS ---
[f rep st] DISCHARGE SUMMARY DISCHARGE DIAGNOSES: 1. Asthma with asthma flare. 2. Hypoxemic respiratory failure. 3. Severe mucus plugging. PROCEDURES DURING THIS ADMISSION: Bronchoscopy with removal of a tenacious mucus plug. Please see a dmission history and physical by Dr. Ramy Brower. HOSPITAL COURSE: The patient presented on the afternoon of the with hypoxia and increased work of breathing after having been treated for bronchitis. He received a Z-Jordi and steroids. Still did not have improvement. CTA showed no pulmonary embolism. He had significant mucous plugging. This w as therapeutically removed. The patient was on room air, tolerating without wheezing. He is dischar ge home on his usual regimen. He is advised to take Mucinex and use the Acapella device should he d evelop further upper respiratory infections, which has led to this in the past. /[id number]/MODL
== END 2017-08-27 13:25 | disposition home or self-care (01) | DRG 202 ==
LOC: F2N 13:19 → F3E 08-25 11:28
PROVIDERS: ADMIT Student in an Organized Health Care Education/Training Program; ATTEND Student in an Organized Health Care Education/Training Program
DX: J45.901 Unspecified asthma with (acute) exacerbation (principal); J96.01 Acute respiratory failure with hypoxia; J98.09 Other diseases of bronchus, not elsewhere classified; I10 Essential (primary) hypertension; E78.5 Hyperlipidemia, unspecified
CPT/HCPCS: 96365; J0696; J1650; J1956; J2250; J3010; J7608; Q9967

== ENCOUNTER 2017-09-02 14:05 | Day surgery (SDC) | payer BC ==
[2017-09-02 14:57] VITALS: TEMP 98.6
[2017-09-02] MEDS ORDERED: LIDOCAINE HCL 4% TOPICAL SOLN 50ML ONE (15:06)
[2017-09-02] MEDS ORDERED: LIDOCAINE 2% JELLY 5 ML TUBE ONE ×2 (15:06→16:09)
[2017-09-02] MEDS ORDERED: MIDAZOLAM 2 MG/2 ML VIAL ONE ×2 (15:25)
[2017-09-02] MEDS ORDERED: fentaNYL 100 MCG/2 ML INJ ONE (15:25)
[2017-09-02] MEDS ORDERED: BENZOCAINE UNIT DOSE SPRAY HURRICAINE MM ONE (15:56)
--- NOTE | 2017-09-02 16:41 | PDPROPOC ---
Sedation Plan of Care Sedation Plan of Care: vital signs stable, mental status noted, patient educated of risks, benefits, alternatives, patient can tolerate sedation ASA Classification: ASA 2 Planned drugs: fentanyl, midazolam Mallampati Score: Class 1 Mallampati Reference Image: Patient passed 3-3-2 rule?: Yes
[2017-09-02 16:51] VITALS: PULSE 78
--- NOTE | 2017-09-02 17:08 | BVPULMO ---
[facility]- Pulmonology Patient Name: Amarjit Wynn Procedure Date: 09/02/2017 3:26 PM Patient Type: Outpatient Attending MD/ER Physician: Urban Grimm MD Procedure: Bronchoscopy Indications: Bilateral atelectasis, Chronic cough Providers: Urban Grimm MD Medicines: Fentanyl 125 mcg IV, Midazolam 5 mg IV, Lidocaine 1% applied to cords 4 mL, Lidocaine 1% applied to the tracheobronchial tree 10 mL Complications: No immediate complications Procedure: After informed consent, a time out was performed. N95 masks were worn, and the procedure was not done in a negative pressure room. The patient was given appropriate topical anesthesia and intravenous sedation. The fiberopic bronchos cope was passed via a bite block orally into the larynx and subsequently into the lo wer trachea bronchial tree. Throughout the procedure, the patient's blood pressure, pulse, and oxygen saturations were monitored continuously. The Bronchoscope (Vi kristen) was introduced through the mouth and advanced into the larynx, and from there i nto the trachea and the lower T-B tree. The procedure was accomplished without difficulty. Findings: Trachea/Tonja Abnormalities: Edema was found throughout the tracheobronchial t ree. Edema was found throughout the tracheobronchial tree and in the trachea. A non-obstructing granular lesion was found in the trachea. BAL was performed in the lung and sent for aerobic culture, AFB analysis & culture, fungal analysis and viral culture. The return was mucoid. There were no mucoid plugs in the return fluid. Protected brushings were obtained in the trachea and sent for unspecified lab analysis. One sample was obtained. Post Op Diagnosis: - Bilateral atelectasis - Chronic cough - Edema was present throughout the tracheobronchial tree. - Edema was present throughout the tracheobronchial tree and in the trachea. - A lesion was found in the trachea. - Bronchoalveolar lavage was performed. - Protected brushings were obtained. - Laryngeal edema. - Erythema was visualized diffusely, throughout the larynx. Estimated Blood Loss: Estimated blood loss was minimal. Recommendation: - Await BAL, biopsy, brushing, culture, cytology and lab results. - Await test results. - Patient has a contact number available for emergencies. The signs and symptom s of potential delayed complications were discussed with the patient. Return to norm al activities tomorrow. Written discharge instructions were provided to the patien t. - Follow up in clinic in one week. Urban Grimm MD Urban Grimm MD 09/02/2017 5:08:01 PM This report has been signed electronicallyHufili Grimm MD Number of Addenda: 0 Note Initiated On: 09/02/2017 3:26 PM [email or web address]
[2017-09-02 17:20] VITALS: BP 133/92; RESP 15; O2SAT 97
== END 2017-09-02 18:06 | disposition home or self-care (01) ==
LOC: FSGY 14:05
PROVIDERS: ATTEND Internal Medicine Pulmonary Disease
PROC: 0B9M8ZX Drainage of Bilateral Lungs, Via Natural or Artificial Opening Endoscopic, Diagnostic (ICD-10-PCS; principal; 2017-09-02 15:30)
PROC: 0B938ZX Drainage of Right Main Bronchus, Via Natural or Artificial Opening Endoscopic, Diagnostic (ICD-10-PCS; principal; 2017-09-02 15:30)
PROC: 0B978ZX Drainage of Left Main Bronchus, Via Natural or Artificial Opening Endoscopic, Diagnostic (ICD-10-PCS; principal; 2017-09-02 15:30)
PROC: 0B918ZX Drainage of Trachea, Via Natural or Artificial Opening Endoscopic, Diagnostic (ICD-10-PCS; principal; 2017-09-02 15:30)
DX: J98.4 Other disorders of lung (principal); J98.11 Atelectasis; J45.909 Unspecified asthma, uncomplicated
CPT/HCPCS: 87529-90; J2250; J3010

== ENCOUNTER → 2018-10-09 | Outpatient (CLI) | payer OTHER | LOC: FIMAGING 13:59 | PROVIDERS: ATTEND Allergy & Immunology Allergy | DX: J32.9 Chronic sinusitis, unspecified (principal) ==

== ENCOUNTER 2018-11-27 07:54 | Day surgery (SDC) | payer OTHER ==
[2018-11-27] MEDS ORDERED: LR 1,000 ML IV ONE (08:20)
[2018-11-27] MEDS ORDERED: METHYLENE BLUE 0.5% 50 MG/10 ML AMP ONE (08:33)
[2018-11-27] MEDS ORDERED: BACITRACIN ZINC 0.5 OZ OINTTUBE TP ONE (08:33)
[2018-11-27] MEDS ORDERED: LIDO/EPI 2%** Not for Epidural 20 ML MDV ONE (08:33)
[2018-11-27] MEDS ORDERED: EPINEPHrine 30 MG/30 ML MDV (0.1 MG/0.1 ML) ONE (08:34)
[2018-11-27] MEDS ORDERED: LIDO/EPI 1% **for epidural** 30 ML SDV ONE (08:34)
[2018-11-27] MEDS ORDERED: ceFAZolin 2 GM/DEXTROSE 100 ML IV ONE (09:02)
[2018-11-27] MEDS ORDERED: DEXAMETHASONE 10 MG/ML VIAL IVP ONE (09:02)
--- NOTE | 2018-11-27 09:03 | PDHPUP ---
History & Physical Update H&P update statement: This history and physical update is based on an assessment of the patient which was completed after admission or registration (within 24 hours), but prior to the surgery/procedure. H&P update: H&P reviewed & patient examined, no change in patient's condition since H&P completed (B PanFESS, possible septoplasty, SMRT and B Latera)
--- NOTE | 2018-11-27 09:13 | PDANEPAE ---
ANE History of Present Illness here for nasal endoscopic turbinate reduction ANE Past Medical History - Cardiovascular History Hx Hypertension: No Hx Arrhythmias: No Hx Chest Pain: No Hx Coronary Artery / Peripheral Vascular Disease: No Hx CHF / Valvular Disease: No Hx Palpitations: No Cardiovascular History Comment: high cholesterol - Pulmonary History Hx COPD: No Hx Asthma/Reactive Airway Disease: Yes Hx Recent Upper Respiratory Infection: No Hx Oxygen in Use at Home: No Hx Sleep Apnea: No Sleep Apnea Screening Result - Last Documented: Negative Pulmonary History Comment: ASTHMA TRIGGERS RELATED TO URI'S. RT PLEURAL EFFUSION 08/2017 - Neurologic History Hx Cerebrovascular Accident: No Hx Seizures: No Hx Dementia: No - Endocrine History Hx Diabetes: No Endocrine History Comment: HYPOTHYROID - Renal History Hx Renal Disorders: No - Liver History Hx Hepatic Disorders: No - Neurological & Psychiatric Hx Hx Neurological and Psychiatric Disorders: No - Cancer History Hx Cancer: No - Congenital Disorder History Hx Congenital Disorders: No - GI History Hx Gastrointestinal Disorders: No - Other Health History Other Health History: NASAL POLYPS/OCCULSION - Chronic Pain History Chronic Pain: No - Surgical History Prior Surgeries: BRONCHOSCOPY 2016 ANE Review of Systems Review of systems is: negative Review of Systems: - Exercise capacity Exercise capacity: >=4 METS METS (RN): 5 METS ANE Patient History - Allergies Allergies/Adverse Reactions: levofloxacin Allergy (Verified 08/24/17 11:22) - Home Medications Home medications: home medication list seen and reviewed Home Medications: Albuterol [Proventil Inhaler HFA (*)] 2 puffs IH Q4-6PRN PRN 08/24/17 [Last Taken 11/26/18 20:00] Atorvastatin Calcium [Lipitor 20 mg (*)] 20 mg PO DAILY 08/24/17 [Last Taken 07:00] EPINEPHrine [Epipen 0.3 MG] 0.3 mg IM ONCE PRN 08/24/17 [Last Taken Unknown] Herbals/Supplements -Info Only 1 ea PO DAILY 08/24/17 [Last Taken 11/22/18] Levothyroxine [Synthroid 50 mcg (*)] 50 mcg PO DAILY06 08/24/17 [Last Taken 07:00] Theophylline Anhydrous 300 mg PO BID 08/24/17 [Last Taken 11/27/18 07:00] Xolair 150mg 150 mg SQ Q30D 08/24/17 [Last Taken 11/15/18 07:00] predniSONE [Prednisone] 4 tab DAILY 09/02/17 [Last Taken 11/26/18 07:00] Advair 250/50 (*) 11/27/18 [Last Taken 11/27/18 07:00] - NPO status NPO Status: no food or drink >8 hours NPO Since - Liquids (Date): 11/27/18 NPO Since - Liquids (Time): 07:00 NPO Since - Solids (Date): 11/26/18 NPO Since - Solids (Time): 20:00 - Smoking Hx Smoking Status: Never smoked - Family Anes Hx Family Hx Anesthesia Complications: none ANE Labs/Vital Signs - Vital Signs Vital Signs: reviewed preoperatively; see RN documention for details Blood Pressure: 151/90 Heart Rate: 75 Respiratory Rate: 16 O2 Sat (%): 97 Height: 175.26 cm Weight: 79.379 kg ANE Physical Exam - Airway Neck exam: FROM Mallampati Score: Class 1 - Pulmonary Pulmonary: no respiratory distress - Cardiovascular Cardiovascular: regular rate and rhythym - ASA Status ASA Status: II ANE Anesthesia Plan Anesthesia Plan: general endotracheal anesthesia
[2018-11-27] MEDS ORDERED: MIDAZOLAM 2 MG/2 ML VIAL IVP ONE (09:14)
[2018-11-27] MEDS ORDERED: PROPOFOL/EMULSION 500 MG/50 ML BOTTLE IV ONE ×2 (09:26→10:39)
[2018-11-27] MEDS ORDERED: fentaNYL 100 MCG/2 ML INJ ONE ×4 (09:32→12:54)
[2018-11-27] MEDS ORDERED: NALOXONE HCL 0.4 MG/ML INJ IVP PRN (10:10)
[2018-11-27] MEDS ORDERED: ALBUTEROL 3 ML DEYVIAL IH PRN (10:10)
[2018-11-27] MEDS ORDERED: HYDROmorphONE/DILAUDID 2 MG/ML INJ IVP PRN (10:10)
[2018-11-27] MEDS ORDERED: oxyCODONE IR 5 MG TAB PO PRN (10:10)
[2018-11-27] MEDS ORDERED: HYDROCODONE/APAP 5/325 TAB PO PRN (10:10)
[2018-11-27] MEDS ORDERED: LR 500 ML IV PRN (10:10)
[2018-11-27] MEDS ORDERED: NS 500 ML IV PRN (10:10)
[2018-11-27] MEDS ORDERED: DEXAMETHASONE 4 MG/ML VIAL IVP PRN (10:10)
[2018-11-27] MEDS ORDERED: ONDANSETRON 4 MG/2 ML VIAL IVP PRN (10:10)
[2018-11-27] MEDS ORDERED: REMIFENTANIL HCL 1 MG VIAL ONE (10:56)
[2018-11-27] MEDS ORDERED: BALANCED SALT IRRIG SOLN 15 ML OPHT.BTL ONE (12:27)
--- NOTE | 2018-11-27 12:52 | POSTOPPROG ---
Post Op Note Date of Operation: 11/28/18 Surgeon: Izzy Serrano Anesthesiologist: Gt Anesthesia: GET(General Endotracheal) Pre-op Diagnosis: CRSwNP, IVC B Post-op Diagnosis: same Procedure: B FESS, B SMRT, B latera implants Findings: sig scarring, MT resection B, polyps B Inf/Abcess present in the surg proc area at time of surgery?: No EBL: 50-100 Complications: none Specimen(s): sinus contents
[2018-11-27] MEDS: fentaNYL 100 MCG/2 ML INJ IVP PRN ×2 (12:56→13:09)
[2018-11-27] MEDS ORDERED: oxyCODONE IR 5 MG TAB ONE (13:27)
[2018-11-27 16:33] VITALS: BP 151/83
--- NOTE | 2018-11-29 13:51 | GOP ---
DATE OF CONSULTATION: 11/27/2018 PREOPERATIVE DIAGNOSES: 1. Chronic rhinosinusitis with nasal polyps. 2. Internal valve collapse. 3. Inferior turbinate enlargement. 4. History of a prior sinus surgery. POSTOPERATIVE DIAGNOSES: 1. Chronic rhinosinusitis with nasal polyps. 2. Internal valve collapse. 3. Inferior turbinate enlargement. 4. History of a prior sinus surgery. NAME OF PROCEDURE: 1. Bilateral revision endoscopic maxillary antrostomy with tissue removal on the left. 2. Bilateral endoscopic total sphenoethmoidectomy with tissue removal from the sphenoid bilaterally. 3. Bilateral submucous resection of the inferior turbinates. 4. Latera placement bilaterally for internal valve collapse. 5. Stereotactic volumetric navigation of the paranasal sinuses and extradural skull base utilizing the [place] system. ANESTHESIA: General. COMPLICATIONS: None. BLOOD LOSS: 50 to 100 cc. FINDINGS: Patient was found to have nasal polyps throughout. He was noted to have evidence of prior surgery including resection of the turbinates bilaterally with some scarring to the lateral nasal wall, especially on the right. He was noted to have some polypoid tissue throughout, as well as a large polyp within the left maxillary sinus and polyps that were within the sphenoid sinus on both sides. He did have internal valve collapse bilaterally with a positive caudal preoperatively. So, Latera implants were placed. DESCRIPTION OF PROCEDURE: The patient was first seen in the preoperative area where informed consent was obtained. He was then brought back to the OR where Anesthesia sedated and intubated him. The bed was turned 90 degrees. He was prepped and draped in a normal fashion. A universal time-out protocol was performed. Once this had been confirmed, the Fusion headpiece was placed on the forehead, and then he was registered and confirmed to be tracking accurately. Once this was done, some epinephrine-soaked pledgets were placed within the nares bilaterally and then removed. After this had sufficient time to act, he was prepped and draped in a normal fashion. I then used a 0-degree scope to evaluate the nasal cavity on both sides. He was noted to have evidence of prior middle turbinectomy on both sides and some polyps blocking the maxillary antrostomy on both sides. He also was noted to have some residual uncinate on both sides. So, at this point, we started on the right side. I removed some of the polyps around the middle turbinate and the middle meatus. I also removed some scar tissue and synechiae between the middle turbinate and the lateral nasal wall. Once this was somewhat released, I was able to use a ball tip probe to find the edge of the uncinate, and this was outfractured and then hand instruments, as well as the microdebrider were used to take down the uncinate all the way up. At this point, I then used a 70 degree scope to evaluate the natural os. This was significant and edematous and had scarred down, but I was able to use the Fusion guided curved suction to probe the natural os confirming the location, and then this was placed in the natural os, and then the tissue was placed posteriorly and medially. I then used a straight José Miguel-Cut to take down some of this tissue and widen the antrostomy, and then the micro-debrider was used to complete the antrostomy. Once this was done, he was noted to have some residual bullae there, so an anterior ethmoidectomy was completed, and I removed these partitions. He did not have a middle turbinate, and so I was able to see the residual middle turbinate coming from the very superior aspect of the nose. I removed some more polyps until I came to the superior turbinate. The superior turbinate in the inferior one-third portion was taken down using a straight José Miguel-Cut, as well as the microdebrider, and then I did remove some ethmoid partitions anterior to the face of the sphenoid. Once this was done, I was able use microdebrider to clean this area up and remove some polyps within this area. The Fusion-guided suction was used to probe and confirm the natural os, and I was noted to be able to suction a polyp from within this area. The microdebrider was then used to remove this polyp, visualize the natural os and then widen this superiorly and medially. Once this was widened significantly, I was able to use the up- and down-biting Kerrison rongeurs to widen the sphenoid inferiorly, laterally and superiorly, and then the posterior ethmoidectomy was completed in a posterior to anterior fashion coming along the skull base. I did use a 30 and 70 degree scope to evaluate this area, as well as the microdebrider and hand instruments to take down these partitions. Once I had skeletonized the skull base, as well as the lamina, I came to the area of the frontal recess. He did have some significant scarring and distortion of the anatomy in this region. I removed some scar tissue and was able to see the edge of the crotch of the middle turbinate. He had some residual agger nasi cell which was removed with a frontal curette. Once this was done, a 70 degree scope was used to visualize the area of the frontal sinus. He did have some oozing in this region. So, at this point, an epi-soaked pledget was placed within this region, and then I turned my attention to the left side. On the left side, I did the same thing, removing some scarring, as well as polyps and performing a revision maxillary antrostomy. I then continued with a total sphenoid ethmoidectomy in the same fashion. I came along the skull base, skeletonizing the skull base from posterior to anterior, and then the lamina laterally. Once I was able to finish this, he was significantly more patent, and he really had a hypoplastic frontal sinus on this left side. So, after finishing the complete ethmoidectomy , I used a 70 degree scope to evaluate the maxillary sinus. There was a very large polyp pedicled inferiorly and posteriorly. A 60 degree curved debrider blade was used to remove this polyp completely, thereby having a nice wide open antrostomy. The left side was irrigated out copiously with normal saline and then suctioned clear. I went back to the right side. The epinephrine-pledget had been removed previously. The 70 degree scope was again used to evaluate the area of the frontal recess, and multiple hand instruments were used to work in this region to open this up wider. All the scar tissue was taken down. He did have some oozing from this area making it somewhat difficult to complete a full frontal sinusotomy safely, and so, I elected to end the sinus portion of procedure at this point. Saline was used to irrigate out the nasal cavity bilaterally, suctioned clear. He had no significant active bleeding although he was somewhat oozy throughout secondary to the inflammatory polyps. So, at this point, I then used about 2 cc of 1% lidocaine with 1 to [id number] epinephrine , and injected about half a cc into the head of the inferior turbinate on both sides. Then, once this was done, this was removed. The nares were prepped using some Betadine along the nasal sill, and then once this had time to act, the Latera implant mold was used to duyen out where the Latera implant would sit right underneath the skin, and then about 0.5 cc of the lidocaine with epinephrine was injected along the trajectory of this implant on both sides. The needle was removed and handed off the field. At this point, the 0-degree scope was used along with a 2 mm turbinate blade to perform a submucous resection along the length of the turbinate in the normal fashion with good visualization throughout. This was done first on the left and then on the right. All instruments were removed, and then a [place] was used to first infracture and then outfracture the inferior turbinate giving significantly more space. At this point, I also placed some Manuel into the sinus cavities bilaterally to help with some hemostasis, and then epinephrine-soaked pledgets were placed along the area of the inferior turbinate where the turbinoplasty was done. At this point, the Latera implant was loaded into the delivery device cannula. Then, first to the left side, a double prong skin hook was placed along the nostril edge and then everted, and I placed the cannula and delivery device perpendicular to this edge going straight down toward the internal valve region; and, once I came to that, attention was placed on the area of the nostril, and the delivery device was used to follow the previously noted roth until I was at the most distal duyen in between the medial canthus and the dorsum of the nose. The implant was injected, and then the cannula was removed, and then a small amount of pressure with an epi-soaked pledget was placed on the area where the delivery device was inserted. Once this was done, I then did the exact same thing on the right side inserting the Latera along the previously noted trajectory over the cartilage and bone and below the skin. Once this was delivered, I again placed some pressure, as well as an epi- pledget for some hemostasis. These were both removed along with the pledgets along the inferior turbinate. He had no significant active bleeding at this point, and so all instruments were removed. The patient was turned back over to Anesthesia, where he was awakened, extubated, and taken to PACU in stable condition. There were no complications, and he tolerated the procedure well. /[id number]/MODL MTDD
== END 2018-11-27 16:10 | disposition home or self-care (01) ==
LOC: FSGY 07:54
PROVIDERS: ATTEND Otolaryngology
DX: J32.4 Chronic pansinusitis (principal); J34.89 Other specified disorders of nose and nasal sinuses; J45.41 Moderate persistent asthma with (acute) exacerbation; J98.09 Other diseases of bronchus, not elsewhere classified
CPT/HCPCS: C9749; J0171; J0690; J1100; J2250; J2704; J3010; Q9968

== ENCOUNTER 2018-12-02 09:59 | Emergency (ER) | payer OTHER ==
--- NOTE | 2018-12-02 12:35 | EDPHY ---
H & P Stated Complaint: SOB, recent sinus surgery, asthmatic Time Seen by Provider: 12/02/18 12:28 HPI/ROS: CHIEF COMPLAINT: Cough, asthma exacerbation HISTORY OF PRESENT ILLNESS: The patient is a 63-year-old man with a history of asthma who has been having increasing wheezing and dry cough for the last several days. He had sinus surgery on Tuesday of this week. He has not had any significant bleeding or swelling or congestion after this. No fevers. He has been on Keflex since the procedure. He did take low-dose prednisone just prior to and just after the procedure. He is not had a fever. He denies chest pain. No recent travel or leg swelling or smoking. He states that the symptoms are very consistent with previous episodes of bronchitis. Severity: Moderate Modifying factors: None REVIEW OF SYSTEMS: Constitutional: denies: chills, fever, recent illness, recent injury EENTM: denies: blurred vision, double vision, nose congestion Respiratory: See HPI Cardiac: denies: chest pain, irregular heart rate, lightheadedness, palpitations Gastrointestinal/Abdominal: denies: abdominal pain, diarrhea, nausea, vomiting, blood streaked stools Genitourinary: denies: dysuria, frequency, hematuria, pain Musculoskeletal: denies: joint pain, muscle pain Skin: denies: lesions, rash, jaundice, bruising Neurological: denies: headache, numbness, paresthesia, tingling, dizziness, weakness Hematologic/Lymphatic: denies: blood clots, easy bleeding, easy bruising Immunologic/allergic: denies: HIV/AIDS, transplant 10 systems reviewed and negative except as noted EXAM: GENERAL: Well-appearing, well-nourished and in no acute distress. HEAD: Atraumatic, normocephalic. EYES: Pupils equal round and reactive to light, extraocular movements intact, sclera anicteric, conjunctiva are normal. ENT: TMs normal, nares patent, oropharynx clear without exudates. Moist mucous membranes. NECK: Normal range of motion, supple without lymphadenopathy or JVD. LUNGS: Mild bilateral wheezing, improved with albuterol. HEART: Regular rate and rhythm without murmurs, rubs or gallops. ABDOMEN: Soft, nontender, normoactive bowel sounds. No guarding, no rebound. No masses appreciated. BACK: No CVA tenderness, no spinal tenderness, step-offs or deformities EXTREMITIES: Normal range of motion, no pitting or edema. No clubbing or cyanosis. Negative Homans NEUROLOGICAL: Cranial nerves II through XII grossly intact. Normal speech, normal gait. 5/5 strength, normal movement in all extremities, normal sensation , normal reflexes PSYCH: Normal mood, normal affect. SKIN: Warm, dry, normal turgor, no visible rashes or lesions. Source: Patient - Personal History Current Tetanus/Diphtheria Vaccine: Unsure Current Tetanus Diphtheria and Acellular Pertussis (TDAP): Unsure - Medical/Surgical History Hx Asthma: Yes Hx Chronic Respiratory Disease: Yes Hx Diabetes: No Hx Cardiac Disease: No Hx Renal Disease: No Hx Cirrhosis: No Hx Alcoholism: No Hx HIV/AIDS: No Hx Splenectomy or Spleen Trauma: No Other PMH: asthma, sinus surgerey. - Family History Significant Family History: No pertinent family hx - Social History Smoking Status: Never smoked Alcohol Use: Sober Drug Use: None Constitutional: Initial Vital Signs Temperature (C) 36.8 C 12/02/18 10:05 Heart Rate 90 12/02/18 10:05 Respiratory Rate 16 12/02/18 10:05 Blood Pressure 145/95 H 12/02/18 10:05 O2 Sat (%) 95 12/02/18 10:05 O2 Delivery Mode Room Air Allergies/Adverse Reactions: levofloxacin Allergy (Intermediate, Verified 12/02/18 10:04) Other-Enter Comments Home Medications: Medication Instructions Recorded Albuterol [Proventil Inhaler HFA 2 puffs IH Q4-6PRN PRN 08/24/17 (*)] Atorvastatin Calcium [Lipitor 20 20 mg PO DAILY 08/24/17 mg (*)] EPINEPHrine [Epipen 0.3 MG] 0.3 mg IM ONCE PRN 08/24/17 Herbals/Supplements -Info Only 1 ea PO DAILY 08/24/17 Levothyroxine [Synthroid 50 mcg 50 mcg PO DAILY06 08/24/17 (*)] Theophylline Anhydrous 300 mg PO BID 08/24/17 Xolair 150mg 150 mg SQ Q30D 08/24/17 predniSONE [Prednisone] 4 tab DAILY 09/02/17 Advair 250/50 (*) 11/27/18 Cephalexin [Keflex (*)] 500 mg PO TID #21 cap 11/27/18 oxyCODONE HCL/ACETAMINOPHEN 1 each PO Q6H PRN #20 tablet 11/27/18 [Percocet 5-325 mg Tablet] predniSONE [Prednisone] 60 mg PO DAILY #60 tablet 12/02/18 Medical Decision Making - Diagnostics Imaging Results: Imaging Impressions Chest X-Ray 12/02/18 11:41 Impression: Findings consistent with airways disease are noted. 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 We discussed the possibility of PE after surgery however this seems unlikely considering the surgery. He has been very active. No leg pain or swelling. No chest pain. He is not tachycardic or hypoxic. He does feel improvement with a nebs but is here requesting her dose of steroids. He states that he is typically starts with 60 mg when he has an exacerbation. We discussed possibly using antibiotics but he has had success in the past without antibiotics. This is most frequently viral. We discussed indications for returning if his symptoms worsen or if he develops chest pain or fevers. He understands and agrees with this plan. Differential Diagnosis: Partial list of the Differential diagnosis considered include but were not limited to; asthma, bronchitis, pneumonia and although unlikely based on the history and physical exam, I also considered PE, acute coronary disease, dissection. I discussed these differential diagnoses and the plan with the patient as well as the usual and expected course. The patient understands that the diagnosis is provisional and that in medicine we are not always correct and that further workup is often warranted. Usual and customary warnings were given. All of the patient's questions were answered. The patient was instructed to return to the emergency department should the symptoms at all worsen or return, otherwise to followup with the physician as we discussed. - Data Points Medications Given: Discontinued Medications Prednisone (Prednisone) 60 mg PO EDNOW ONE Stop: 12/02/18 12:43 Last Admin: 12/02/18 12:48 Dose: 60 mg Departure - Departure Disposition: Home, Routine, Self-Care Clinical Impression: Acute bronchitis Qualifiers: Bronchitis organism: unspecified organism Qualified Code(s): J20.9 - Acute bronchitis, unspecified Condition: Fair Instructions: Prednisone (By mouth), Acute Bronchitis (ED) Referrals: Mary Kay Boles MD [Primary Care Provider] - 1-2 days without fail Francia Martinez MD [[facility] [place], [place] Primary Care Provider] - 2-3 days, if not improved Prescriptions: predniSONE [Prednisone] 60 mg PO DAILY #60 tablet
[2018-12-02] MEDS ORDERED: predniSONE 20 MG TAB PO ONE (12:42)
[2018-12-02 12:53] VITALS: BP 128/85
== END 2018-12-02 12:53 | disposition home or self-care (01) ==
DX: J20.9 Acute bronchitis, unspecified (principal)
CPT/HCPCS: J7512